=== PATIENT | male | born 1995 | race Caucasian/White ===

== ENCOUNTER 2022-06-02 20:16 | Emergency (ER) | payer SELFPAY ==
[~2022-06-02] VITALS: Ht 177.8 cm; Wt 99.8 kg
[2022-06-02] MEDS ORDERED: SODIUM CHLORIDE 0.9% 1000ML 1,000 ML IV STA ×2 (20:21→21:51)
[2022-06-02 23:28] VITALS: BP 107/60
== END 2022-06-02 23:17 | disposition home or self-care (01) ==
LOC: ER 20:25
DX: F12.920 Cannabis use, unspecified with intoxication, uncomplicated (principal)
CPT/HCPCS: 99284; J7030